=== PATIENT | female | born 1970 ===

== ENCOUNTER 2023-11-23 08:48 | Inpatient (IN) | payer BC ==
[2023-11-23] MEDS ORDERED: Meclizine HCl 25 MG TAB ONE (09:07)
[2023-11-23 09:22] LABS: Troponin I Less than 0.010 ng/mL (< 0.028)
[2023-11-23 09:23] LABS: ALT (SGPT) 11 U/L (8-55); AST (SGOT) 17 U/L (5-34); Albumin 3.8 g/dL (3.5-5.0); Alkaline Phosphatase 76 U/L (40-110); Anion Gap 14 mmol/L (10-20); BUN (Urea Nitrogen) 13 mg/dL (9.8-20.1); Bilirubin, Total 0.3 mg/dL (0.2-1.2); Calc. Creatinine Clearance 0 mL/min (70-130); Calcium 8.8 mg/dL (7.8-10.44); Carbon Dioxide 24 mmol/L (22-29); Chloride 109 mmol/L (98-107); Estimated GFR 78; Globulin 2.4 g/dL (2.4-3.5); Glucose 125 mg/dL (70-105); Magnesium 1.5 mg/dL (1.6-2.6); Potassium 3.9 mmol/L (3.5-5.1); Protein, Total 6.2 g/dL (6.0-8.3); Sodium 143 mmol/L (136-145)
[2023-11-23] MEDS ORDERED: Iopamidol 370 76% 100 ML VIAL ONE (09:29)
[2023-11-23 09:40] LABS: #Eosinphils 0.1 10x3/uL (0.0-0.5); #Monocytes 0.2 10x3/uL (0.0-1.1); #Neutrophils 2.9 10x3/uL (1.5-8.4); %Basophils 0.5 % (0.0-2.0); %Eosinophils 2.8 % (0.0-6.0); %Lymphocytes 22.7 % (18.0-47.0); %Monocytes 5.4 % (0.0-10.0); %Neutrophils 68.4 % (40.0-75.0); Hematocrit 37.3 % (34.9-44.5); Hemoglobin 12.3 g/dL (12.0-15.5); Mean Corpuscular Hemoglobin 26.8 pg (27.0-33.0); Mean Corpuscular Volume 81.3 fl (81.6-98.3); Mean Platelet Volume 10.3 fl (7.4-10.4); Platelet Count 237 10x3/uL (150-450); Red Blood Cell (RBC) Count 4.59 10x6/uL (3.90-5.03); White Blood Cell (WBC) Count 4.3 10x3/uL (3.5-10.5)
[2023-11-23 10:53] LABS: Bilirubin Neg (Negative); Blood, Urine Negative (Negative); Clarity Clear (Clear); Glucose, Urine (Dipstick) Normal (Negative); Ketone, Urine Negative (Negative); Leukocyte 100 (Negative); Nitrite Negative (Negative); Protein, Urine (Dipstick) Negative (Neg-Trace); Urobilinogen Normal mg/dL (Less than 2)
[2023-11-23 11:15] LABS: Bacteria/HPF None Seen HPF (None Seen); CAUTI Indications for Culture Pelvic or flank pain; RBC/HPF None Seen HPF (0-3); Squamous Epithelial 0-3 HPF (0-3)
[2023-11-23 11:16] LABS: Urine Culture Reflex No No
[2023-11-23] MEDS ORDERED: Acetaminophen 325 MG TAB PO PRN (11:21)
[2023-11-23] MEDS ORDERED: Ondansetron ODT 4 MG TAB PO PRN (11:21)
[2023-11-23] MEDS ORDERED: Magnesium Sulfate/D5W 1 GM/100 ML BAG ONE (11:40)
[2023-11-23] MEDS ORDERED: hydrALAZINE 25 MG TAB PO SCH ×2 (12:00→15:00)
[2023-11-23] MEDS ORDERED: hydrOXYzine 25 MG TAB ONE (12:13)
[2023-11-23 12:35] LABS: Amphetamine Not Detected (NotDetected); Barbiturates Screen Not Detected (NotDetected); Benzodiazepine Screen Not Detected (NotDetected); Cocaine Metabolite Screen Not Detected (NotDetected); Methadone Not Detected (NotDetected); Methamphetamine Not Detected (NotDetected); Opiate Screen Not Detected (NotDetected); Oxycodone Screen Not Detected (NotDetected); Phencyclidine (PCP) Not Detected (NotDetected); THC/Cannabinoid Screen Not Detected (NotDetected); Tricyclic Screen Not Detected (NotDetected)
[2023-11-23] MEDS ORDERED: Atorvastatin Calcium 40 MG TAB ONE (22:36)
[2023-11-23] MEDS ORDERED: Atorvastatin Calcium 40 MG TAB PO SCH (23:00)
[2023-11-24 04:46] LABS: Anion Gap 13 mmol/L (10-20); BUN (Urea Nitrogen) 8 mg/dL (9.8-20.1); Calc. Creatinine Clearance 0 mL/min (70-130); Calcium 8.6 mg/dL (7.8-10.44); Carbon Dioxide 24 mmol/L (22-29); Cardiac Risk 2.9 (Less than 4.5); Chloride 110 mmol/L (98-107); Cholesterol 164 mg/dl (< 200 Desired); Estimated GFR 85; Glucose 79 mg/dL (70-105); HDL Cholesterol 57 mg/dL (>60 Neg Risk); LDL Cholesterol, Calculated 93 mg/dL; Magnesium 1.8 mg/dL (1.6-2.6); Sodium 143 mmol/L (136-145); Triglycerides 72 mg/dL (Less than 150)
[2023-11-24] MEDS ORDERED: hydrOXYzine 25 MG TAB ONE (06:15)
[2023-11-24] MEDS: hydrOXYzine 25 MG TAB PO PRN (06:17)
[2023-11-24] MEDS ORDERED: Aspirin 81 mg Enteric Coated Tablet ONE (07:50)
[2023-11-24] MEDS ORDERED: Meclizine HCl 25 MG TAB ONE ×2 (08:34→14:06)
[2023-11-24] MEDS: Aspirin 81 mg Enteric Coated Tablet PO SCH (08:51)
[2023-11-24] MEDS ORDERED: Meclizine HCl 25 MG TAB PO SCH (09:00)
[2023-11-24] MEDS: Aripiprazole 10 MG TAB PO SCH (09:41)
[2023-11-24] MEDS: Sertraline 25 MG TAB PO SCH (09:41)
[2023-11-24 09:44] VITALS: BMI 23.8
[2023-11-24] MEDS: Meclizine HCl 25 MG TAB PO SCH ×2 (14:08→22:26)
[2023-11-24] MEDS: Atorvastatin Calcium 40 MG TAB PO SCH (20:21)
[2023-11-25] MEDS: Meclizine HCl 25 MG TAB PO SCH ×2 (05:31→14:35)
[2023-11-25] MEDS: hydrOXYzine 25 MG TAB PO PRN (05:31)
[2023-11-25] MEDS: Aripiprazole 10 MG TAB PO SCH (08:36)
[2023-11-25] MEDS: Aspirin 81 mg Enteric Coated Tablet PO SCH (08:36)
[2023-11-25] MEDS: Sertraline 25 MG TAB PO SCH (08:36)
[2023-11-25] MEDS ORDERED: Prochlorperazine Maleate 5 MG TAB PO PRN (16:59)
[2023-11-25] MEDS: Atorvastatin Calcium 40 MG TAB PO SCH (21:24)
[2023-11-25] MEDS: busPIRone HCl 15 MG TAB PO SCH (21:24)
[2023-11-25] MEDS: Meclizine HCl 12.5 MG TAB PO SCH (23:51)
[2023-11-26] MEDS: Meclizine HCl 12.5 MG TAB PO SCH ×4 (05:33→23:57)
[2023-11-26] MEDS: Aspirin 81 mg Enteric Coated Tablet PO SCH (09:06)
[2023-11-26] MEDS: Aripiprazole 10 MG TAB PO SCH (09:07)
[2023-11-26] MEDS: Sertraline 25 MG TAB PO SCH (09:07)
[2023-11-26] MEDS: busPIRone HCl 15 MG TAB PO SCH ×2 (09:07→21:23)
[2023-11-26] MEDS: Atorvastatin Calcium 40 MG TAB PO SCH (21:23)
[2023-11-27] MEDS: Meclizine HCl 12.5 MG TAB PO SCH ×3 (06:13→17:47)
[2023-11-27] MEDS: ALPRAZolam 0.5 MG TAB PO PRN (08:22)
[2023-11-27] MEDS: Aripiprazole 10 MG TAB PO SCH (08:22)
[2023-11-27] MEDS: Aspirin 81 mg Enteric Coated Tablet PO SCH (08:22)
[2023-11-27] MEDS: busPIRone HCl 15 MG TAB PO SCH ×2 (08:22→21:47)
[2023-11-27] MEDS: Sertraline 25 MG TAB PO SCH (08:23)
[2023-11-27] MEDS: Atorvastatin Calcium 40 MG TAB PO SCH (21:47)
[2023-11-28 04:14] LABS: #Eosinphils 0.4 10x3/uL (0.0-0.5); #Monocytes 0.5 10x3/uL (0.0-1.1); #Neutrophils 5.5 10x3/uL (1.5-8.4); %Basophils 0.3 % (0.0-2.0); %Eosinophils 5.1 % (0.0-6.0); %Lymphocytes 11.5 % (18.0-47.0); %Monocytes 7.1 % (0.0-10.0); %Neutrophils 75.9 % (40.0-75.0); Hematocrit 40.7 % (34.9-44.5); Mean Corpuscular HGB CONC 31.9 g/dL (32.0-36.0); Mean Corpuscular Hemoglobin 26.2 pg (27.0-33.0); Mean Corpuscular Volume 81.9 fl (81.6-98.3); Mean Platelet Volume 10.5 fl (7.4-10.4); Platelet Count 213 10x3/uL (150-450); RBC Distribution Width 13.8 % (11.5-14.5); Red Blood Cell (RBC) Count 4.97 10x6/uL (3.90-5.03); White Blood Cell (WBC) Count 7.3 10x3/uL (3.5-10.5)
[2023-11-28 04:18] LABS: ALT (SGPT) 21 U/L (8-55); AST (SGOT) 27 U/L (5-34); Albumin 3.5 g/dL (3.5-5.0); Alkaline Phosphatase 74 U/L (40-110); Anion Gap 13 mmol/L (10-20); BUN (Urea Nitrogen) 13 mg/dL (9.8-20.1); Bilirubin, Total 0.4 mg/dL (0.2-1.2); Calc. Creatinine Clearance 70 mL/min (70-130); Calcium 8.6 mg/dL (7.8-10.44); Carbon Dioxide 25 mmol/L (22-29); Chloride 107 mmol/L (98-107); Estimated GFR 81; Globulin 2.6 g/dL (2.4-3.5); Glucose 81 mg/dL (70-105); Magnesium 1.5 mg/dL (1.6-2.6); Potassium 4.2 mmol/L (3.5-5.1); Protein, Total 6.1 g/dL (6.0-8.3); Sodium 141 mmol/L (136-145)
[2023-11-28] MEDS: Meclizine HCl 12.5 MG TAB PO SCH ×5 (06:43→23:35)
[2023-11-28] MEDS: ALPRAZolam 0.5 MG TAB PO PRN (06:44)
[2023-11-28] MEDS: Aripiprazole 10 MG TAB PO SCH (09:25)
[2023-11-28] MEDS: busPIRone HCl 15 MG TAB PO SCH ×2 (09:25→21:42)
[2023-11-28] MEDS: Aspirin 81 mg Enteric Coated Tablet PO SCH (09:25)
[2023-11-28] MEDS: Sertraline 25 MG TAB PO SCH (09:25)
[2023-11-28] MEDS: Magnesium Sulfate/D5W 1 GM in Premix 1 BAG IVPB SCH (12:23)
[2023-11-28] MEDS: Atorvastatin Calcium 40 MG TAB PO SCH (21:42)
[2023-11-29 04:14] LABS: Magnesium 1.6 mg/dL (1.6-2.6)
[2023-11-29] MEDS: Meclizine HCl 12.5 MG TAB PO SCH ×3 (05:33→17:22)
[2023-11-29] MEDS: ALPRAZolam 0.5 MG TAB PO PRN (07:51)
[2023-11-29] MEDS: Aripiprazole 10 MG TAB PO SCH (09:14)
[2023-11-29] MEDS: busPIRone HCl 15 MG TAB PO SCH ×2 (09:14→21:02)
[2023-11-29] MEDS: Sertraline 25 MG TAB PO SCH (09:14)
[2023-11-29] MEDS: Aspirin 81 mg Enteric Coated Tablet PO SCH (09:14)
[2023-11-29] MEDS: Magnesium Sulfate/D5W 1 GM in Premix 1 BAG IVPB SCH (12:00)
[2023-11-29] MEDS: Magnesium 2 GM/50 ML(in water) 2 GM in Premix 1 BAG IVPB SCH ×2 (13:15→15:46)
[2023-11-29] MEDS: Atorvastatin Calcium 40 MG TAB PO SCH (21:02)
[2023-11-30] MEDS: Meclizine HCl 12.5 MG TAB PO SCH ×3 (00:29→12:45)
[2023-11-30 03:46] LABS: #Eosinphils 0.1 10x3/uL (0.0-0.5); #Monocytes 0.4 10x3/uL (0.0-1.1); #Neutrophils 2.4 10x3/uL (1.5-8.4); %Basophils 0.6 % (0.0-2.0); %Eosinophils 2.8 % (0.0-6.0); %Lymphocytes 17.1 % (18.0-47.0); %Monocytes 10.5 % (0.0-10.0); %Neutrophils 68.7 % (40.0-75.0); Hematocrit 38.7 % (34.9-44.5); Hemoglobin 12.4 g/dL (12.0-15.5); Mean Corpuscular Hemoglobin 25.9 pg (27.0-33.0); Mean Corpuscular Volume 80.8 fl (81.6-98.3); Mean Platelet Volume 10.3 fl (7.4-10.4); Platelet Count 160 10x3/uL (150-450); RBC Distribution Width 13.5 % (11.5-14.5); Red Blood Cell (RBC) Count 4.79 10x6/uL (3.90-5.03); White Blood Cell (WBC) Count 3.5 10x3/uL (3.5-10.5)
[2023-11-30 03:55] LABS: Anion Gap 14 mmol/L (10-20); BUN (Urea Nitrogen) 9 mg/dL (9.8-20.1); Calc. Creatinine Clearance 72 mL/min (70-130); Calcium 8.4 mg/dL (7.8-10.44); Carbon Dioxide 23 mmol/L (22-29); Chloride 106 mmol/L (98-107); Estimated GFR 84; Glucose 90 mg/dL (70-105); Magnesium 2.2 mg/dL (1.6-2.6); Potassium 3.8 mmol/L (3.5-5.1); Sodium 139 mmol/L (136-145)
[2023-11-30] MEDS: hydrOXYzine 25 MG TAB PO PRN (07:00)
[2023-11-30] MEDS: Sertraline 25 MG TAB PO SCH (09:44)
[2023-11-30] MEDS: Aspirin 81 mg Enteric Coated Tablet PO SCH (09:45)
[2023-11-30] MEDS: busPIRone HCl 15 MG TAB PO SCH (09:45)
[2023-11-30] MEDS: Aripiprazole 10 MG TAB PO SCH (10:07)
[2023-11-30] MEDS: Magnesium Sulfate/D5W 1 GM in Premix 1 BAG IVPB SCH (12:44)
[2023-11-30 16:23] VITALS: BP 98/62; TEMP 98.6
== END 2023-11-30 18:00 | disposition home or self-care (01) | DRG 149 ==
LOC: CSHERS 08:48 → CSHERHOLD 10:56 → CSHTELE 11-24 18:49 → OBSVTOIN 11-25 16:53
PROVIDERS: ADMIT Internal Medicine; ATTEND Internal Medicine
DX: R42 Dizziness and giddiness (principal); H55.00 Unspecified nystagmus; F41.9 Anxiety disorder, unspecified; F31.9 Bipolar disorder, unspecified; F20.9 Schizophrenia, unspecified; F12.10 Cannabis abuse, uncomplicated; Z91.018 Allergy to other foods; W19.XXXA Unspecified fall, initial encounter; H53.8 Other visual disturbances; E83.42 Hypomagnesemia; Z87.81 Personal history of (healed) traumatic fracture; H53.2 Diplopia
CPT/HCPCS: 36415; 70450; 70496; 70498; 70551; 70553; 71045; 80048; 80053; 80061; 80306; 81001; 83735; 84484; 85025; 93005; G0378; J3475; Q9967